=== PATIENT | male | born 1985 | race Caucasian/White ===

== ENCOUNTER 2018-07-04 22:06 | Emergency (ER) | payer BC ==
[~2018-07-04] VITALS: Ht 172.7 cm; Wt 70.5 kg
[~2018-07-04 22:06] MED LIST: SYMBICORT
[2018-07-04 22:59] LABS: BASOPHILS # (AUTO) 0.08 x10^3/uL (0-0.1); BASOPHILS % (AUTO) 1 % (0-1); EOSINOPHILS # (AUTO) 0.28 x10^3/uL (0-0.4); EOSINOPHILS % (AUTO) 3 % (1-7); LYMPHOCYTES # (AUTO) 1.64 x10^3/uL (1-3.4); LYMPHOCYTES % (AUTO) 18 % (22-44); MD NO; MEAN CORPUSCULAR HEMOGLOBIN 30.4 pg (27.5-34.5); MEAN CORPUSCULAR HGB CONC 33.4 g/dL (33.2-36.2); MEAN PLATELET VOLUME 7.9 fL (7.4-10.4); MONOCYTES # (AUTO) 1.29 x10^3/uL (0.2-0.8); MONOCYTES % (AUTO) 14 % (2-9); NEUTROPHILS # (AUTO) 5.79 x10^3/uL (1.8-6.8); NEUTROPHILS % (AUTO) 64 % (42-75); PLATELET COUNT 266 x10^3/uL (130-400); RED BLOOD COUNT 4.97 x10^6/uL (4.38-5.82); RED CELL DISTRIBUTION WIDTH 14.6 % (9.4-14.8)
[2018-07-04 23:09] LABS: ALBUMIN 3.6 g/dL (3.4-5.0); ANION GAP 7 mmol/L (5-15); CALCIUM 10.1 mg/dL (8.5-10.1); CHLORIDE 102 mmol/L (98-107)
[2018-07-04 23:13] LABS: ALANINE AMINOTRANSFERASE 48 U/L (12-78); ALKALINE PHOSPHATASE 44 U/L (45-117); BILIRUBIN,TOTAL 0.7 mg/dL (0.2-1.0); CREATININE 1.31 mg/dL (0.7-1.3); TOTAL PROTEIN 7.4 g/dL (6.4-8.2)
[2018-07-05] MEDS ORDERED: MAALOX/HYOSCYAMINE/LIDOCAINE 45 ML BTL PO ONE
[2018-07-05] MEDS ORDERED: MAALOX/HYOSCYAMINE/LIDOCAINE 45 ML BTL ONE (00:05)
[2018-07-05 00:07] VITALS: BP 120/69
== END 2018-07-05 00:22 | disposition home or self-care (01) ==
LOC: ED 23:59
DX: K25.3 Acute gastric ulcer without hemorrhage or perforation (principal); R10.11 Right upper quadrant pain; J45.909 Unspecified asthma, uncomplicated; R19.7 Diarrhea, unspecified
CPT/HCPCS: 36415; 74022; 76700; 80053; 83690; 85025; 86677; 93005; 99285

== ENCOUNTER 2021-06-17 16:35 | Emergency (ER) | payer BC ==
[~2021-06-17] VITALS: Ht 172.7 cm; Wt 76.5 kg
[2021-06-17 17:00] VITALS: BP 107/56
--- NOTE | 2021-06-17 17:15 | NUR ---
PATIENT IN TRIAGE, STATES "MY GIRLFRIEND GOT HER HAND ON AN INHALER I THINK I'M GOING TO LEAVE." EDUCATED PATIENT ABOUT STAYING VERSUS LEAVING, PATIENT DECIDED TO LEAVE. AMBULATORY WITH STEADY GAIT FROM ED.
== END 2021-06-17 17:16 | disposition left against medical advice (07) ==
LOC: ED 16:45
DX: R06.02 Shortness of breath (principal); Z53.21 Procedure and treatment not carried out due to patient leaving prior to being seen by health care provider

== ENCOUNTER 2021-06-21 21:25 | Emergency (ER) | payer SELFPAY ==
[~2021-06-21] VITALS: Ht 172.7 cm; Wt 77.9 kg
[2021-06-21 21:44] VITALS: BP 127/84
[2021-06-21] MEDS ORDERED: DEXAMETHASONE 4 MG/ML, 1ML ONE (22:19)
[2021-06-21] MEDS ORDERED: KETOROLAC 30 MG/1 ML ONE (22:19)
[2021-06-21] MEDS ORDERED: SODIUM CHLORIDE 0.9% 1,000ML IVBOLUS ONE ×2 (22:30→23:00)
[2021-06-21] MEDS ORDERED: DEXAMETHASONE 4 MG TABLET PO ONE (22:30)
[2021-06-21] MEDS ORDERED: KETOROLAC 30 MG/1 ML IVPush ONE (22:30)
[2021-06-21 22:37] LABS: BASOPHILS % (AUTO) 1 % (0-1); EOSINOPHILS % (AUTO) 9 % (1-7); LYMPHOCYTES % (AUTO) 28 % (22-44); MEAN CORPUSCULAR HEMOGLOBIN 30.4 pg (27.5-34.5); MEAN CORPUSCULAR HGB CONC 33.9 g/dL (33.2-36.2); MEAN PLATELET VOLUME 7.6 fL (7.4-10.4); MONOCYTES % (AUTO) 6 % (2-9); NEUTROPHILS % (AUTO) 56 % (42-75); PLATELET COUNT 333 x10^3/uL (130-400); RED BLOOD COUNT 5.12 x10^6/uL (4.38-5.82); RED CELL DISTRIBUTION WIDTH 13.9 % (9.4-14.8)
--- NOTE | 2021-06-21 22:43 | NUR ---
IV establsihed, Fluids running. COVID swab and blood cx walked to lab.
[2021-06-21 22:47] LABS: ALANINE AMINOTRANSFERASE 55 U/L (12-78); ALBUMIN 3.6 g/dL (3.4-5.0); ANION GAP 8 mmol/L (5-15); CALCIUM 9.3 mg/dL (8.5-10.1); CHLORIDE 106 mmol/L (98-107)
[2021-06-21 22:52] LABS: ALKALINE PHOSPHATASE 42 U/L (45-117); BILIRUBIN,TOTAL 0.2 mg/dL (0.2-1.0); CREATININE 1.32 mg/dL (0.7-1.3); TOTAL PROTEIN 7.3 g/dL (6.4-8.2); TROPONIN I < 0.015 ng/mL (0.000-0.045)
[2021-06-21 23:06] LABS: <PLATELET ESTIMATE> ADEQUATE; <PLT MORPHOLOGY> NORMAL PLT MORPH; ANISOCYTOSIS 1+; HYPOCHROMIA 1+; MICROCYTOSIS 1+
--- NOTE | 2021-06-22 00:03 | NUR ---
Patient/Caregiver given discharge instructions and they have confirmed that they understand the instructions. Patient ambulatory with steady gait. NAD, all questions answered appropriately, denies additional needs at this time. No personal belongings left in room after discharge.
== END 2021-06-22 00:05 | disposition home or self-care (01) ==
LOC: ED 21:54
DX: J45.31 Mild persistent asthma with (acute) exacerbation (principal); R00.0 Tachycardia, unspecified; Z20.822 Contact with and (suspected) exposure to COVID-19
CPT/HCPCS: 36415; 71045; 80053; 83605; 84145; 84484; 85025; 87040; 93005; 96361; 96374; 99285; J1885; J7030; U0003; U0005